=== PATIENT | female | born 1950 | race Caucasian/White ===

== ENCOUNTER 2019-09-19 15:01 | Outpatient (CLI) | payer MEDICARE, SELFPAY ==
--- NOTE | 2019-09-19 15:11 | CTR_ITS ---
PROCEDURE INFORMATION: Exam: CT Right Lower Extremity Without Contrast, Ankle Exam date and time: 09/19/2019 3:11 PM Age: 69 years old Clinical indication: Condition or disease; Other: Sinus tarsi syndrome right TECHNIQUE: Imaging protocol: CT of the Right lower extremity without contrast was performed. Exam focused on the ankle. 3D rendering: MIP and/or 3D reconstructed images were created by the technologist. Radiation optimization: All CT scans at this facility use at least one of these dose optimization techniques: automated exposure control; mA and/or kV adjustment per patient size (includes targeted exams where dose is matched to clinical indication); or iterative reconstruction. COMPARISON: No relevant prior studies available. RADIATION DOSE METRICS: Total DLP (mGy-cm): 1655.95 FINDINGS: Bones/joints: There are moderate to severe degenerative changes especially in the talonavicular joint, subtalar joint and calcaneocuboid joint. There is a vacuum cleft at the calcaneal cuboid joint. Enthesopathy of the calcaneus is identified at the insertion of the plantar aponeurosis. No tear. There is also calcaneal enthesopathy. There are no definite findings of sinus tarsi syndrome. No bony subchondral cysts or bony remodeling typically identified in the sinus tarsi to suggest sinus tarsi syndrome is identified. No osteochondral defect of the talus. Chronic appearing small avulsion fracture fragments and bony remodeling of the medial malleolus and distal fibula are noted compatible with old ankle injuries. No acute fracture or osteomyelitis. No acute bony abnormality. Soft tissues: Calcaneal enthesopathy is identified at the insertion of the Achilles tendon to the calcaneus. The Achilles tendon is enlarged compatible with moderate tendinopathy. There is also mild induration of Kager's fat pad. The plantar aponeurosis at the calcaneal insertion is very thickened and there is edema in the plantar fat pad which is concerning for plantar fasciitis. There is still preservation of some of the normal fat density in the sinus tarsi. No foreign body. There is subcutaneous edema specially adjacent to the distal Achilles tendon and along the hindfoot and plantar aponeurosis. No localized subcutaneous fluid collection. CT/CT foot ankle RT wo con IMPRESSION: 1. Moderate Achilles tendinopathy. There is induration of Kager's fat pad and thickening of the distal tendon with calcaneal enthesopathy. There is also marked thickening of the plantar aponeurosis with edema of the adjacent plantar fat pad and a large calcaneal enthesophyte. The findings are also concerning for plantar fasciitis. 2. No definite findings of sinus tarsi syndrome. Normal fat density is noted in the sinus tarsi. No bony erosions in the sinus tarsi. 3. Degenerative changes are noted greatest at the calcaneal cuboid joint with there is joint space narrowing sclerosis and vacuum cleft. Less prominent degenerative changes are noted at the talonavicular joint and subtalar joint. Radiation Dose CTDIVOL = (mGy): DLP = 1655.95 (mGy-cm)
== END 2019-09-19 15:02 | disposition home or self-care (01) ==
LOC: RADWPI 15:08
PROVIDERS: Visit Provider Podiatrist Foot & Ankle Surgery
DX: M25.571 Pain in right ankle and joints of right foot (principal); M76.61 Achilles tendinitis, right leg
CPT/HCPCS: 73700; 76377

== ENCOUNTER 2021-09-29 12:31 | Outpatient (CLI) | payer MEDICARE, SELFPAY ==
--- NOTE | 2021-09-29 12:46 | USCV_ITS ---
Sun Abernathy Age: 71 Gender: F : 1950 Exam Date: 09/29/2021 12:56 Ordering Phys: Bethany Fernandez Technologist: Phillip Allred Exam Location: [facility] [place] Indication: leg pain RIGHT LEFT Brachial 144.00 mmHg Brachial 141.00 mmHg Pressure (mmHg) Waveform Pressure (mmHg) Waveform 168.00 FORMS DESIGNER 198.00 135.00 DPA 185.00 1.10 Ankle/Brachial Index 1.30 135.00 Pre-Exercise Toe Pressure 106.00 0.94 Pre-Exercise Toe/Brachial Index 0.74 FINDINGS Resting TERE 1.1 on the right and 1.3 on the left Resting TBI of 0.94 on the right and 0.74 on the left CONCLUSIONS Normal resting ABIs and TBIs bilaterally. No significant arterial obstruction, based on the above findings Dr Yao Martel MD [facility] (Electronically Signed) Final Date: 29 September 2021 20:37 S
== END 2021-09-29 12:32 | disposition home or self-care (01) ==
LOC: RAD 12:34
PROVIDERS: Visit Provider Nurse Practitioner Family
DX: M79.662 Pain in left lower leg (principal)
CPT/HCPCS: 93922

== ENCOUNTER 2023-06-17 17:18 | Outpatient (CLI) | payer MEDICARE, SELFPAY ==
[2023-06-17 17:56] LABS: Basophils # 0.1 10^3/uL (0.0-0.1); Basophils % 0.9 %; Eosinophils # 0.2 10^3/uL (0.0-0.8); Eosinophils % 2.1 %; Hematocrit 39.1 % (36-47); Lymphocytes # 2.7 10^3/uL (0.8-4.8); Lymphocytes % 34.6 %; Mean Corpuscular HGB Conc 32.2 g/dL (30-55); Mean Corpuscular Volume 93.1 fl (85-98); Mean Platelet Volume 9.8 fL (7.4-10.4); Monocytes # 0.6 10^3/uL (0.2-0.9); Monocytes % 7.3 %; Neutrophils # 4.33 10^3/uL (1.8-7.7); Neutrophils % 54.8 %; Nucleated Red Blood Cells % 0 %; Platelet Count 306 10^3/cmm (157-399); Red Cell Distribution Width 13.2 % (12.1-15.1); White Blood Count 7.91 10^3/uL (3.29-11.43)
[2023-06-17 18:18] LABS: Alanine Aminotransferase 24 U/L (0-33); Albumin Level 3.8 g/dL (3.5-5.2); Alkaline Phosphatase 94 U/L (35-105); Anion Gap 12.9 (5-19); Aspartate Amino Transferase 25 U/L (0-32); Blood Urea Nitrogen 19 mg/dL (8-23); Calcium 9.4 mg/dL (8.5-10.5); Carbon Dioxide 25 mmol/L (22-29); Chloride 107 mmol/L (98-107); Globulin 3.3 g/dL (1.3-4.6); Glucose 121 mg/dL (65-115); Osmolality Calculated 296 mOsm/kg (285-295); Potassium 3.9 mmol/L (3.5-5.1); Sodium 141 mmol/L (136-145); Total Bilirubin 0.3 mg/dL (0.15-1.2); Total Protein 7.1 g/dL (6.6-8.7)
== END 2023-06-17 17:19 | disposition home or self-care (01) ==
PROVIDERS: PCP Nurse Practitioner Family; Visit Provider Nurse Practitioner Family
DX: M79.604 Pain in right leg (principal)
CPT/HCPCS: 36415; 80053; 85025

== ENCOUNTER 2025-02-20 13:12 | Outpatient (CLI) | payer MEDICARE, OTHER, SELFPAY ==
--- NOTE | 2025-02-20 13:40 | MM_ITS ---
WS: [id number] BILATERAL SCREENING DIGITAL TOMOSYNTHESIS MAMMOGRAM WITH CAD HISTORY: SCREENING COMPARISON: None available. Bilateral CC and MLO views with tomosynthesis and synthetic mammography submitted. Computer aided detection analyzed. Breast composition: There are scattered areas of fibroglandular density. No suspicious masses, microcalcifications or architectural distortion. Benign lymph node upper outer quadrant LEFT breast. There are a few benign scattered calcifications. MM/MM scr BI tomosynthesis [id number] IMPRESSION: BI-RADS: 2 - Benign. FOLLOW UP: 1 Year Follow-up
== END 2025-02-20 13:13 | disposition home or self-care (01) ==
LOC: MOBLMAM 13:14
PROVIDERS: PCP Nurse Practitioner Family; Visit Provider Nurse Practitioner Family
DX: Z12.31 Encounter for screening mammogram for malignant neoplasm of breast (principal); R92.323 Mammographic fibroglandular density, bilateral breasts; R92.1 Mammographic calcification found on diagnostic imaging of breast; N63.21 Unspecified lump in the left breast, upper outer quadrant
CPT/HCPCS: 77063; 77067

== ENCOUNTER 2025-02-20 13:56 | Outpatient (CLI) | payer MEDICARE, OTHER, SELFPAY ==
--- NOTE | 2025-02-20 14:07 | MR_ITS ---
WS: [id number] MRI LUMBAR SPINE NONCONTRAST HISTORY: POSTLAMINECTOMY SYNDROME/RADICULOPATHY,LUMBAR REGION, RIGHT leg pain. COMPARISON: None available. TECHNIQUE: Sagittal and axial multisequence imaging is submitted. Mild increase in thoracic kyphosis. Posterior lumbar alignment is normal. Mild increase in the lumbar lordosis. Mild disc space narrowing and desiccation at L4-5. Conus terminates normally at L1-2 disc level. L1-L2: Mild facet joint arthritis. No significant stenosis. L2-L3: Mild annular disc bulging. Moderate ligamentum flavum and facet arthritis. There is disc contacting and encroaching upon the subarticular recesses and the traversing L3 nerve roots. Mild central stenosis. Very mild RIGHT foraminal narrowing. L3-L4: Diffuse disc bulging with severe ligamentum flavum and facet arthritis. There is disc contacting the traversing L4 nerve roots. Fluid in the facet joints. Moderate central and subarticular recess stenosis. Mild bilateral foraminal stenosis. L4-L5: Osteophytic ridging. No disc protrusions. RIGHT hemilaminectomy defect. Mild arachnoiditis. The RIGHT traversing L5 nerve root is slightly enlarged and edematous suggesting there may be an acute neuritis. This is asymmetric to the LEFT nerve root. Mild subarticular recess stenosis. Facet joint and ligamentum debridement on the RIGHT. No foraminal stenosis. L5-S1: No stenosis. Parapelvic cyst on the RIGHT. MR/MR lumbar spine wo con* [id number] IMPRESSION: 1. RIGHT hemilaminectomy with facet joint and ligamentum debridement on the RI GHT at L4-5. 2. The traversing RIGHT L5 nerve root is slightly enlarged as compared to the LEFT suggesting there may be mild neuritis. 3. Mild subarticular recess stenosis at L4-5. 4. L3-4: Moderate central, subarticular recess and mild bilateral foraminal st enosis. There is disc contacting the traversing L4 nerve roots. 5. Mild central and RIGHT foraminal stenosis at L2-3. There is mild disc conta ct on the traversing L3 nerve roots in the subarticular recesses.
== END 2025-02-20 13:57 | disposition home or self-care (01) ==
LOC: RAD 13:57
PROVIDERS: PCP Nurse Practitioner Family; Visit Provider Nurse Practitioner Family
DX: M96.1 Postlaminectomy syndrome, not elsewhere classified (principal); M54.16 Radiculopathy, lumbar region; R93.7 Abnormal findings on diagnostic imaging of other parts of musculoskeletal system; M48.061 Spinal stenosis, lumbar region without neurogenic claudication; M51.369 Other intervertebral disc degeneration, lumbar region without mention of lumbar back pain or lower extremity pain; M47.896 Other spondylosis, lumbar region; M24.28 Disorder of ligament, vertebrae; M25.78 Osteophyte, vertebrae; M96.89 Other intraoperative and postprocedural complications and disorders of the musculoskeletal system; G03.9 Meningitis, unspecified; N28.1 Cyst of kidney, acquired
CPT/HCPCS: 72148